=== PATIENT | female | born 1995 | race Two or more races ===

== ENCOUNTER 2025-03-26 06:44 | Emergency (ER) | payer MEDICAID, SELFPAY ==
[2025-03-26 06:45] VITALS: BMI 21.7
[2025-03-26 07:59] VITALS: BP 112/74; PULSE 64; RESP 16; TEMP 36.9; O2SAT 100
[2025-03-26 08:32] LABS: Collection Type, Urine Voided
[2025-03-26 08:37] LABS: Bilirubin,Urine Negative (Negative); Blood,Urine Trace (Negative); Clarity,Urine Clear (Clear/Hazy); Color,Urine Colorless (Lt Yel-Yel); Culture Indicated,Urine Not Indicated; Glucose, Urine Negative (Negative); Ketones,Urine Negative (Negative); Leukocyte Esterase,Urine Negative (Negative); Nitrite,Urine Negative (Negative); PH,Urine 6.5 (5.0-7.0); Protein,Urine Negative (Neg - Trace); RBC,Urine 2 /hpf (0-3); Specific Gravity,Urine 1.009 (1.001-1.035); Squamous Epithelial Cell,Urine < 1 /hpf (0-5); Urobilinogen,Urine Negative mg/dL (0.0-1.0); WBC,Urine < 1 /hpf (0-5)
--- NOTE | 2025-03-26 08:46 | PD.EDADULT ---
ED General RME/HPI General Chief complaint: General Adult/Misc Complain Stated complaint: UTI Time Seen by Provider: 03/26/25 07:22 Arrival date/time: 03/26/25 06:44 This is a 30-year-old female that comes into the emergency room with complaints of UTI. Patient was recently put on medication for her UTI and finished her antibiotics. Patient states she was on Macrobid and she was still having symptoms that she went to the clinic yesterday and they prescribed her an antibiotic. When she went to go pick it up they told her that the insurance might cover the antibiotic. Patient does not know antibiotic they were going to give her. Patient reports that she was recently diagnosed with chlamydia her and her partner both got treated. Patient not having any symptoms at this time. Denies any abnormal discharge. Patient has a recheck appointment next week with her primary doctor for this problem. Related Data Allergies Allergy/AdvReac Type Severity Reaction Status Date / Time No Known Allergies Allergy Verified 03/26/25 06:50 Review of Systems Review of Systems Systems Reviewed: All systems reviewed, normal except as documented Past Medical History Past Medical History NEUROLOGIC: Negative Neurological Disorders CARDIAC: Negative Cardiac Disorders ED Exam Narrative Physical exam: VITAL SIGNS: Reviewed. GENERAL APPEARANCE: Alert and interactive, follows commands, no acute distress HEAD AND FACE: Non-traumatic. ENT: PERRL, conjuctiva pink and clear, eyelid no trauma, Mucous membrane moist. NECK: Supple, nontender, no nuchal rigidity. CHEST: No tenderness, no crepitus, no paradoxical movement, no retractions. LUNGS: breathing even and unlabored HEART: Regular rate, cap refill less than 2 seconds ABDOMEN: Soft, nondistended, no guarding, nontender NEUROLOGICAL: Gross motor function intact sensory function intact, Appropriate for age. MUSCULOSKELETAL: low back nontender, full range of motion. EXTREMITIES: No redness no swelling no skin breakdown on bilateral foot and leg. Distal neurovascular status intact bilateral foot SKIN: Color pink, dry Course Quality Measures none Orders Category Date Time Status Chlamydia/GC/TV - PCR Stat Lab 03/26/25 08:27 Completed Urinalysis, C/S if Indicated Stat Lab 03/26/25 08:27 Completed Urine Culture Stat Lab 03/26/25 08:27 Completed cefTRIAXone [Rocephin] 1,000 mg Med 03/26/25 10:01 Discontinued Lidocaine 1% 20 ml [Xylocaine 1% 20 ML] 2.1 ml IM X1 Vital Signs Vital signs: Vital Signs Temperature 98.4 F 03/26/25 07:59 Pulse Rate 64 03/26/25 07:59 Respiratory Rate 16 03/26/25 07:59 Blood Pressure 112/74 03/26/25 07:59 Pulse Oximetry (%) 100 03/26/25 07:59 Oxygen Delivery Method Room Air 03/26/25 07:59 Discharge Plan Plan Patient Disposition: HOME (Self Care) Patient condition on transfer: Stable Prescriptions/Referrals Referrals: Mario Alberto Lerner MD [Primary Care Provider, Family Practice] - In 1 week Problem List Clinical Impression: UTI (urinary tract infection) Patient/Caregiver Discharge Instructions Discharge Activity: activity as tolerated Education Materials: ED CYSTITIS Female Adult Additional Instructions: Aletha un marisol con cage medico de cabecera en las proximas 24-48 horas. Regrese a la carmen de emergencias si hay evidencia de que los signos o sintomas empeoran. Print Language: Yi Stand Alone Forms: Emiliana Award Info., Patient Portal Info Letter PA/INSTITUTE DIRECTOR Supervising Physician PA/INSTITUTE DIRECTOR Supervising Physician: diallo MARCUM Narrative MDM hospital course (for use when minimal MDM required): I spoke to patient at length. Patient does not know antibiotics they prescribed her. Her urine does not appear to be infected at this time. Patient is having urinary dysuria urgency frequency. Patient states that she wants an antibiotic today and she will mixing picker tender her other antibiotic tomorrow after she talks to the pharmacy. Today we will give her a dose of Rocephin and will have her follow-up with her urine culture. Patient verbalized understanding. Dragon dictation: Although this document has been carefully reviewed, there may still be some phonetic and other typographical errors. These errors are purely grammatical due to imperfections in the software program and should not be construed in any way to compromise the substance of the patient's medical care during this visit. Clinical Information Provided by: patient Medical Records reviewed [facility] Meds/Rx considered, not ordered None Chronic Illness/Social Conditions which may negatively complicate care or outcome(s)-explain: None or not applicable Labs Labs: interpreted by me Imaging Imaging interpretation: none Medication Administration(s) Medication Administration History Discontinued Medications Ceftriaxone Sodium 1,000 mg/ (Lidocaine HCl 2.1 ml) 0 mg IM X1 ONE Stop: 03/26/25 10:02 Last Admin: 03/26/25 10:07 Dose: Not Given Documented By: GLORIA Non-Admin Reason: Patient Refused See MAR
[2025-03-27 10:23] LABS: Chlamydia trachomatis PCR Negative (Not Detect); Neisseria Gonorrhoeae DNA PCR Negative (Not Detect); Trichomonas Negative (Negative)
== END 2025-03-26 10:08 | disposition home or self-care (01) ==
PROVIDERS: Nurse Practitioner Family; Emergency Provider Emergency Medicine; PCP Family Medicine
DX: N39.0 Urinary tract infection, site not specified (principal)
CPT/HCPCS: 81001; 87086; 87491; 87591; 87661; 99283